=== PATIENT | female | born 2000 | race African-American/Black ===

== ENCOUNTER 2019-08-16 23:53 | Emergency (ER) | payer OTHER ==
[2019-08-17] MEDS ORDERED: DEXAMETHASONE SOD PHOS INJ 10 MG/1 ML VIAL IM ONE (03:13)
--- NOTE | 2019-08-17 03:14 | ER Document Report ---
HPI - HPI Time Seen by Provider: 08/17/19 03:04 Pain Level: 4 Context: Patient is a 19-year-old female that comes to the emergency department for chief complaint of worsening sore throat since yesterday, chills, painful swallowing. She also states she has mild congestion. She denies cough, headache, abdominal pain, vomiting, chest pain. She denies any obvious sick contacts. She denies any daily medications. She denies . - CONSTITUTIONAL Constitutional: REPORTS: Fever - EENT EENT: REPORTS: Sore Throat - NEURO Neurology: REPORTS: Headache - REPRODUCTIVE Reproductive: DENIES: : Past Medical History - General Information source: Patient, Relative - Social History Smoking Status: Never Smoker Frequency of alcohol use: Rare Drug Abuse: None Lives with: Family Family History: Reviewed & Not Pertinent Patient has suicidal ideation: No Patient has homicidal ideation: No - Medical History Medical History: Negative Surgical Hx: Negative - Immunizations Immunizations up to date: Yes Hx Diphtheria, Pertussis, Tetanus Vaccination: Yes Vertical Provider Document - CONSTITUTIONAL General Appearance: WD/WN, No Apparent Distress - INFECTION CONTROL TRAVEL OUTSIDE OF THE [place] IN LAST 30 DAYS: No - HEENT HEENT: Atraumatic, Normocephalic. negative: Normal ENT Exam - There is erythema of the posterior pharynx with minimal tonsillitis, no noted exudates, normal uvu la, patent airway, unremarkable oropharyngeal exam otherwise. Nasal and sinus exam is unremarkable. Ears unremarkable. Eyes unremarkable. - NECK Neck: Other - Mild anterior cervical adenopathy bilaterally - RESPIRATORY Respiratory: Breath Sounds Normal, No Respiratory Distress - CARDIOVASCULAR Cardiovascular: Regular Rate, Regular Rhythm - GI/ABDOMEN Gastrointestinal: Abdomen Soft, Abdomen Non-Tender. negative: Abdomen Tender - BACK Back: Normal Inspection - MUSCULOSKELETAL/EXTREMETIES Musculoskeletal/Extremeties: MAEW, FROM, Non-Tender - NEURO Level of Consciousness: Awake, Alert, Appropriate Motor/Sensory: No Motor Deficit, No Sensory Deficit - DERM Integumentary: Warm, Dry, No Rash Course - Re-evaluation Re-evalutation: Patient with pharyngitis on exam, no abscess noted, soft abdomen, unremarkable otherwise. She is able to tolerate p.o. without difficulty. Strep is negative. Discussed with patient. Treated with dexamethasone, discussed throat culture, follow-up, return precautions. Patient states appreciation and agreement. Stable at time of discharge. - Vital Signs Vital signs: Temp Pulse Resp BP Pulse Ox 98.9 F 93 20 111/72 100 08/17/19 03:01 08/17/19 03:01 08/16/19 23:57 08/17/19 03:01 08/17/19 03:01 Discharge - Discharge Clinical Impression: Anterior cervical adenopathy Pharyngitis Qualifiers: Pharyngitis/tonsillitis etiology: unspecified etiology Qualified Code(s): J02.9 - Acute pharyngitis, unspecified Condition: Stable Disposition: HOME, SELF-CARE Additional Instructions: Your strep test is negative, the exact cause of the throat infection is uncertain, we have a culture pending at this time. You have been treated with dexamethasone, I recommend Motrin and a lot of fluids and rest. Symptoms should simply resolve. If your culture is positive we will call you with an antibiotic prescription. Return for any concerning symptoms including developing swelling, difficulty breathing or swallowing, or any other concerning or worsening symptoms. Referrals: MARYJANE FERMIN MD [Primary Care Provider] - Follow up as needed
[2019-08-17 03:28] VITALS: BP 109/57
== END 2019-08-17 03:30 | disposition home or self-care (01) ==
LOC: ER 23:53
DX: J02.9 Acute pharyngitis, unspecified (principal); R59.0 Localized enlarged lymph nodes; R51 Headache
CPT/HCPCS: 99283; 96372; 87070; 87880; J1100

== ENCOUNTER 2020-06-15 08:05 | Emergency (ER) | payer OTHER ==
[2020-06-15] MEDS ORDERED: IBUPROFEN 600 MG TABLET PO ONE (10:31)
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
[2020-06-15 12:58] VITALS: BP 106/60
== END 2020-06-15 13:00 | disposition home or self-care (01) ==
LOC: ER 08:05
DX: S50.01XA Contusion of right elbow, initial encounter (principal); S80.01XA Contusion of right knee, initial encounter; Y04.2XXA Assault by strike against or bumped into by another person, initial encounter; S40.812A Abrasion of left upper arm, initial encounter; S40.811A Abrasion of right upper arm, initial encounter; Y04.0XXA Assault by unarmed brawl or fight, initial encounter; Y93.89 Activity, other specified; Y92.009 Unspecified place in unspecified non-institutional (private) residence as the place of occurrence of the external cause
CPT/HCPCS: 99284